=== PATIENT | male | born 1950 | race Caucasian/White ===

== ENCOUNTER 2018-06-24 05:31 | Day surgery (SDC) | payer MEDICARE, BC ==
[2018-06-24] MEDS ORDERED: MIDAZOLAM INJ 2 MG/2 ML VIAL ONE (06:41)
[2018-06-24] MEDS ORDERED: PROPARACAINE 0.5% OPHTH SOL 15 ML BTTL ONE (08:42)
[2018-06-24] MEDS ORDERED: TROP 1%/CYCLOPEN 1%/PHENYL 2% DROPS ONE (08:42)
[2018-06-24] MEDS: PROPARACAINE 0.5% OPHTH SOL 15 ML BTTL LEFT_EYE ONE (10:25)
[2018-06-24] MEDS: TOBRAMYCIN SULF 0.3 % OPHT SOL 1 DROP LEFT_EYE ONE ×2 (10:31→11:11)
[2018-06-24] MEDS: LIDOCAINE 1% 2 ML VIAL INJ ONE ×2 (10:31→10:56)
[2018-06-24] MEDS: DEXAMETHASONE 0.1% OPHTH SOL 1 DROP LEFT_EYE ONE ×2 (10:31→11:11)
[2018-06-24] MEDS: BRIMONIDINE 0.2% OPHTH DROPS LEFT_EYE ONE ×2 (10:32→11:11)
== END 2018-06-24 11:45 | disposition home or self-care (01) ==
LOC: AMB 05:31
PROVIDERS: ATTEND Ophthalmology
DX: H26.9 Unspecified cataract (principal); I10 Essential (primary) hypertension; E11.36 Type 2 diabetes mellitus with diabetic cataract; I25.10 Atherosclerotic heart disease of native coronary artery without angina pectoris; K21.9 Gastro-esophageal reflux disease without esophagitis; Z79.82 Long term (current) use of aspirin; Z79.84 Long term (current) use of oral hypoglycemic drugs; Z79.899 Other long term (current) drug therapy
CPT/HCPCS: 00142; 66821; 66984; 82948; J2250

== ENCOUNTER 2018-07-08 05:39 | Day surgery (SDC) | payer MEDICARE, BC ==
[2018-07-08] MEDS ORDERED: PROPARACAINE 0.5% OPHTH SOL 15 ML BTTL ONE (10:56)
[2018-07-08] MEDS ORDERED: TROP 1%/CYCLOPEN 1%/PHENYL 2% DROPS ONE (10:56)
[2018-07-08] MEDS ORDERED: MIDAZOLAM INJ 2 MG/2 ML VIAL ONE ×2 (12:36→12:42)
[2018-07-08] MEDS ORDERED: LIDOCAINE 1% MPF 5 ML VIAL INJ ONE (12:46)
[2018-07-08] MEDS ORDERED: TOBRAMYCIN SULF 0.3 % OPHT SOL 1 DROP RIGHT_EYE ONE ×2 (12:47→13:01)
[2018-07-08] MEDS ORDERED: DEXAMETHASONE 0.1% OPHTH SOL 1 DROP RIGHT_EYE ONE ×2 (12:47→13:01)
[2018-07-08] MEDS ORDERED: BRIMONIDINE 0.2% OPHTH DROPS RIGHT_EYE ONE ×2 (12:47→13:01)
== END 2018-07-08 13:40 | disposition home or self-care (01) ==
LOC: AMB 05:39
PROVIDERS: ATTEND Ophthalmology
DX: H25.11 Age-related nuclear cataract, right eye (principal); I10 Essential (primary) hypertension; I25.10 Atherosclerotic heart disease of native coronary artery without angina pectoris; K21.9 Gastro-esophageal reflux disease without esophagitis; E11.36 Type 2 diabetes mellitus with diabetic cataract; E66.9 Obesity, unspecified; I25.2 Old myocardial infarction; Z95.5 Presence of coronary angioplasty implant and graft; Z79.82 Long term (current) use of aspirin; Z79.84 Long term (current) use of oral hypoglycemic drugs; Z79.899 Other long term (current) drug therapy
CPT/HCPCS: 00142; 66984; J2250